=== PATIENT | male | born 1955 | race American Indian/Alaskan Native ===

== ENCOUNTER 2018-07-17 12:19 | Inpatient (IN) | payer BC ==
[2018-07-12 12:51] VITALS: BMI 32.1
[2018-07-17] MEDS ORDERED: Bupivacaine 0.25% 20 ML INJ IJ ONE (16:34)
[2018-07-17] MEDS ORDERED: Propofol 10 mg/ml Inj (20 ML) ONE (16:35)
[2018-07-17] MEDS ORDERED: ceFAZolin IV 1 gm in Dextrose 2 GM/100 ML BAG IVPB ONE (16:35)
[2018-07-17] MEDS ORDERED: Succinylcholine Chloride 20 mg/ml Syr (5 ml) IV ONE (18:05)
[2018-07-17 19:43] VITALS: RESP 20
--- NOTE | 2018-07-17 22:20 | CP.PCM.CON ---
<Akin Velazquez - Last Filed: 07/18/18 04:12> History of Present Illness - History of Present Illness History of Present Illness: PGY2 Medicine Consult Note for Dr. Hanna Reason for consult: Medical Management Patient is a 63 year old male with a past medical history of hypertension and hypothyroidism who was admitted after hernia surgery today. Per patient records , the surgery performed was an incarcerated right sided inguinal hernia repair. Patient reports that he first noticed hernia over one year ago. It was non- tender and non-reducible. He did not experience any nausea, vomiting, diarrhea or constipation. He went to his PMD in [place] and was instructed to have elective surgery for repair of hernia. This was a scheduled procedure and patient reports feeling well. He is tolerating his diet. He has not passed flatus or had a bowel movement since surgery earlier today. He has no complaints at this time. Denies fevers, chills, chest pain, shortness of breath , numbness, tingling. PMH: Hypertension and hypothyroidism PSH: Right inguinal hernia repair Family: both parents in the their 70's (heavy smokers, unknown cause of ) Social: denies tobacco, alcohol and illicit drug use Allergeis: NKDA Review of Systems - Review of Systems All systems: reviewed and no additional remarkable complaints except - Constitutional Constitutional: As Per HPI - EENT Eyes: As Per HPI Nose/Mouth/Throat: As Per HPI - Cardiovascular Cardiovascular: As Per HPI - Respiratory Respiratory: As Per HPI - Gastrointestinal Gastrointestinal: As Per HPI - Musculoskeletal Musculoskeletal: As Per HPI - Integumentary Integumentary: As Per HPI - Neurological Neurological: As Per HPI - Psychiatric Psychiatric: As Per HPI - Endocrine Endocrine: As Per HPI - Hematologic/Lymphatic Hematologic: As Per HPI Past Patient History - Past Medical History & Family History Past Medical History?: Yes - Past Social History Smoking Status: Never Smoked - CARDIAC Hx Cardiac Disorders: Yes Hx Hypertension: Yes - PULMONARY Hx Respiratory Disorders: No - NEUROLOGICAL Hx Neurological Disorder: No - HEENT Hx HEENT Problems: Yes (READING GLASSES) - RENAL Hx Chronic Kidney Disease: No - ENDOCRINE/METABOLIC Hx Endocrine Disorders: Yes Hx Hypothyroidism: Yes - HEMATOLOGICAL/ONCOLOGICAL Hx Blood Disorders: No - INTEGUMENTARY Hx Dermatological Problems: No - MUSCULOSKELETAL/RHEUMATOLOGICAL Hx Musculoskeletal Disorders: Yes Hx Falls: No Other/Comment: Inguinal Hernia, right - GASTROINTESTINAL Hx Gastrointestinal Disorders: No - GENITOURINARY/GYNECOLOGICAL Hx Genitourinary Disorders: Yes Hx Hematuria: Yes (MICROSCOPIC) - PSYCHIATRIC Hx Psychophysiologic Disorder: No Hx Substance Use: No - SURGICAL HISTORY Hx Surgeries: Yes Hx Herniorrhaphy: Yes (RT. INGUINAL) - ANESTHESIA Hx Anesthesia: Yes Hx Anesthesia Reactions: No Hx Malignant Hyperthermia: No Has any member of the family had a problem w/ anesthesia?: No Meds Allergies/Adverse Reactions: Allergies Allergy/AdvReac Type Severity Reaction Status Date / Time No Known Allergies Allergy Verified 07/12/18 12:51 - Medications Medications: Current Medications Docusate Sodium (Colace) 100 mg PO BID [facility] Enoxaparin Sodium (Lovenox) 40 mg SC DAILY [facility] Lactated Ringer's (Lactated Ringer's) 1,000 mls @ 100 mls/hr IV .Q10H [facility] Ketorolac Tromethamine (Toradol) 30 mg IVP Q6 PRN PRN Reason: pain 8-10 Stop: 07/22/18 18:24 Nebivolol (Bystolic) 5 mg PO DAILY [facility] Ondansetron HCl (Zofran Inj) 4 mg IVP Q6 PRN PRN Reason: Nausea/Vomiting Oxycodone/Acetaminophen (Percocet 5/325 Mg Tab) 2 tab PO Q4H PRN PRN Reason: pain Stop: 07/20/18 18:11 Pantoprazole Sodium (Protonix Inj) 40 mg IVP DAILY [facility] Physical Exam - Constitutional Appears: Well, No Acute Distress Additional comments: Patient recently received pain medication - Head Exam Head Exam: ATRAUMATIC, NORMOCEPHALIC - Eye Exam Eye Exam: Normal appearance - ENT Exam ENT Exam: Mucous Membranes Moist - Respiratory Exam Respiratory Exam: Clear to Auscultation Bilateral, NORMAL BREATHING PATTERN. absent: Accessory Muscle Use, Rales, Rhonchi, Wheezes, Respiratory Distress - Cardiovascular Exam Cardiovascular Exam: REGULAR RHYTHM, +S1, +S2 - GI/Abdominal Exam GI & Abdominal Exam: Normal Bowel Sounds, Soft. absent: Distended, Firm, Guarding, Rigid, Tenderness - Exam Additional comments: Right inguinal surgical dressing c/d/i - Extremities Exam Extremities exam: Positive for: pedal pulses present. Negative for: calf tenderness, pedal edema Additional comments: scds in place - Neurological Exam Neurological exam: Alert, Oriented x3 - Psychiatric Exam Psychiatric exam: Normal Affect, Normal Mood - Skin Skin Exam: Dry, Warm Results - Vital Signs Recent Vital Signs: Last Vital Signs Temp 97.8 F 07/17/18 19:42 Pulse 68 07/17/18 19:42 Resp 20 07/17/18 19:42 BP 151/87 H 07/17/18 19:42 Pulse Ox 97 07/17/18 19:42 Assessment & Plan - Assessment and Plan (Free Text) Plan: Incarcerated Right Inguinal Hernia s/p repair POD#1 General Surgery Primary Team, Dr. Johnson management per primary team Hypertension continue home medication * Bystolic 5mg PO daily Hypothyroidism patient does not know dose of home medication * Patient just started medication less than one week ago, will hold medication for now. Prophylactic Care Lovenox 40mg SC daily SCDs Protonix 40mg IVP daily Case discussed with Dr. Jacques Velazquez PGY2 <Horacio Hanna P - Last Filed: 07/18/18 07:03> Meds - Medications Medications: Current Medications Docusate Sodium (Colace) 100 mg PO BID [facility] Enoxaparin Sodium (Lovenox) 40 mg SC DAILY [facility] Lactated Ringer's (Lactated Ringer's) 1,000 mls @ 100 mls/hr IV .Q10H [facility] Last Admin: 07/18/18 05:56 Dose: 100 mls/hr Ketorolac Tromethamine (Toradol) 30 mg IVP Q6 PRN PRN Reason: pain 8-10 Stop: 07/22/18 18:24 Nebivolol (Bystolic) 5 mg PO DAILY [facility] Ondansetron HCl (Zofran Inj) 4 mg IVP Q6 PRN PRN Reason: Nausea/Vomiting Oxycodone/Acetaminophen (Percocet 5/325 Mg Tab) 2 tab PO Q4H PRN PRN Reason: pain Stop: 07/20/18 18:11 Last Admin: 07/18/18 00:07 Dose: 2 tab Pantoprazole Sodium (Protonix Inj) 40 mg IVP DAILY [facility] Results - Vital Signs Recent Vital Signs: Last Vital Signs Temp 97.9 F 07/18/18 00:09 Pulse 68 07/18/18 00:09 Resp 20 07/18/18 00:09 BP 106/70 07/18/18 00:09 Pulse Ox 98 07/18/18 00:09 Attending/Attestation - Attestation I have personally seen and examined this patient.: Yes I have fully participated in the care of the patient.: Yes I have reviewed all pertinent clinical information: Yes Notes (Text): 07/18/18 06:58 Patient evaluated on consult, admitted post of after surgical repair of right inguinal hernia, has h/o htn on bystolic 5mg daily and thyroid med started recently, patient was tolerating diet last night, alert oriented x3 and no significant pain with the current meds, will check am labs if stable will sign off, please call as needed.
[2018-07-18] MEDS: Oxycodone/Acetaminophen 5/325 mg Tab PO PRN ×2 (00:07→13:29)
[2018-07-18] MEDS: Lactated Ringer's 1,000 ML IV SCH (05:56)
--- NOTE | 2018-07-18 06:01 | OP ---
PROCEDURE DATE: 07/17/2018 PREOPERATIVE DIAGNOSIS: Incarcerated right inguinal hernia. POSTOPERATIVE DIAGNOSIS: Incarcerated right inguinal hernia. PROCEDURE PERFORMED: Repair of incarcerated right inguinal hernia. SURGEON: Dong Johnson MD ANESTHESIA: General. BLOOD LOSS: 40 mL. POSTOP CONDITION: Stable. INDICATIONS FOR SURGERY: This is a 63-year-old male who has a large right inguinal scrotal hernia, where an ultrasound revealed a large inguinal scrotal hernia with bowel. The ultrasound was read as the left side, but on exam the hernia was obviously on the right side as there was no left inguinal hernia noted on exam. GROSS FINDINGS: There was a large pantaloon hernia with a very large hernia sac which was extending down to near the testicle. It contained small bowel as well as a component. There was also a large 5-cm cord lipoma. DESCRIPTION OF PROCEDURE: The patient was taken to the operating room, general anesthesia was administered. The right groin was prepped and draped. A standard right inguinal incision was made. The external oblique aponeurosis was opened and the spermatic cord was looped with a [place] drain. There was a large inguinal scrotal hernia sac, which meticulously had to be taken off the cord as well as the cord structures including the vas and the spermatic artery. At one point, the spermatic artery was bleeding. It was repaired with 7-0 Prolene and blood flow was confirmed by Doppler. Once the sac had been meticulously taken off, I dissected down to the hernia base direct. A direct hernia component was noted. This was also dissected free at its base and inverted. A medium-sized hernia plug was inserted into the direct hernia sac, sutured in place with 2-0 Prolene. Next, a large hernia sac was completely dissected free down to its base. It was associated with a large 5 to 6 cm pelvic lipoma, which was resected. The hernia sac was divided using a TA 60 stapler and the hernia defect was repaired using an extra large Prolene plug using interrupted 2-0 Prolene suture. The wound was irrigated. It should be noted that while taking down the hernia, there was a serosal tear noted of the small bowel. This was repaired with silk. The wound was then irrigated with copious amounts of saline solution. Tissue flaps were raised and a closure of the space was performed with multiple layers of Monocryl, subcuticular Monocryl, and skin clips. The patient tolerated the procedure well, and returned to recovery room in stable condition. Dong Johnson MD
--- NOTE | 2018-07-18 08:21 | CP.PCM.PN ---
Subjective - Date & Time of Evaluation Date of Evaluation: 07/18/18 Time of Evaluation: 07:45 - Subjective Subjective: Hospitalist Consult Note Patient was seen and examined at 7:45 AM 07/18/18 368 A Very pleasant 63 year old male (PMHx of HTN and Hypothyroidism) who underwent Right Inguinal Hernia repair on 07/17/18. Hospitalist Service was consulted for management of his chronic medical problems. Upon FULL ROS NO dysphagia/odynopahgia NO soreness in throat NO cough NO sinus/nasal congestion NO fever/chills NO muscle aches/pains NO joint pain NO chest pain/palpations NO SOB NO abdominal pain NO n/v/d/c: has not had a bowel movement since right inguinal hernia repair however is passing flatus NO burning pain with urination NO BONDS NO lightheadedness/dizziness NO paresthesias Exam: General: AAOX3, NAD HEENT: NCA, EOMI, PERRLA, NO cervical/supraclavicular/submandibular lymphadenopathy, NO pharyngeal erythema/exudate, Nasal Turbinates are nonerythematous/nonedematous, Oral Mucosa is moist Cardio: NS1 and NS2, NO M/R/G Resp: CTA B/L, NO R/R/W GI: BSx4, Soft, NT, NO HSM, NO guarding/rebound tenderness Ext: Pulses are strong and equal, Capillary Refill is 2 seconds, NO edema Neuro: CN II through XII are grossly intact Assessments: 1). S/P Right Inguinal Hernia Repair: management as per primary attending Dr. Johnson. Incentive Spirometry ordered and demonstrated to patient how to use. 2). Hx HTN 3). Hx Hypothyroidism As per my conversation with patient, his primary care physician is Dr. Kearns in [place] who manages his HTN and Hypothyroidism. He has follow up scheduled with Dr. Kearns towards the end of this month. Confirmed with him that he has enough of his Bystolic (for his HTN) and Levothyroxine (for his Hypothyroidism) to last him until his appointment with Dr. Kearns. Will follow up this morning's labs. Medicine Team will be signing off. Shaheen Wynne D.O. Objective - Vital Signs/Intake and Output Vital Signs (last 24 hours): Temp Pulse Resp BP Pulse Ox 97.9 F 68 20 106/70 98 07/18/18 00:09 07/18/18 00:09 07/18/18 00:09 07/18/18 00:09 07/18/18 00:09 Intake and Output: 07/18/18 07/18/18 06:59 18:59 Intake Total 350 Output Total 300 Balance 50 - Medications Medications: Current Medications Docusate Sodium (Colace) 100 mg PO BID [facility] Enoxaparin Sodium (Lovenox) 40 mg SC DAILY [facility] Lactated Ringer's (Lactated Ringer's) 1,000 mls @ 100 mls/hr IV .Q10H [facility] Last Admin: 07/18/18 05:56 Dose: 100 mls/hr Ketorolac Tromethamine (Toradol) 30 mg IVP Q6 PRN PRN Reason: pain 8-10 Stop: 07/22/18 18:24 Nebivolol (Bystolic) 5 mg PO DAILY [facility] Ondansetron HCl (Zofran Inj) 4 mg IVP Q6 PRN PRN Reason: Nausea/Vomiting Oxycodone/Acetaminophen (Percocet 5/325 Mg Tab) 2 tab PO Q4H PRN PRN Reason: pain Stop: 07/20/18 18:11 Last Admin: 07/18/18 00:07 Dose: 2 tab Pantoprazole Sodium (Protonix Inj) 40 mg IVP DAILY [facility]
[2018-07-18 09:08] LABS: BASO # 0.1 K/uL (0.0-0.2); BASO % 0.5 % (0.0-2.0); EOS % 0.1 % (0.0-4.0); HEMOGLOBIN 11.6 g/dL (12.0-18.0); LYMPH # 0.9 K/uL (1.0-4.3); LYMPH % 7.6 % (20.0-40.0); MEAN CELL VOLUME 79.3 fL (80.0-94.0); MEAN CORPUSCULAR HEMOGLOBIN 25.7 pg (27.0-31.0); MEAN CORPUSCULAR HGB CONC 32.4 g/dL (33.0-37.0); MEAN PLATELET VOLUME 8.1 fL (7.2-11.7); MONO # 0.9 K/uL (0.0-0.8); MONO % 7.9 % (0.0-10.0); NEUT % 83.9 % (50.0-75.0); PLATELET COUNT 210 K/uL (130-400); RED CELL DISTRIBUTION WIDTH 14.3 % (11.5-14.5); WHITE BLOOD COUNT 11.9 K/uL (4.8-10.8)
[2018-07-18 09:32] LABS: CALCIUM 8.6 mg/dl (8.6-10.4)
[2018-07-18 10:10] LABS: ANISOCYTOSIS SLIGHT; BANDS 2 % (0-2); BASOPHIL 1 % (0-2); HYPOCHROMIC SLIGHT; LYMPHOCYTE 8 % (20-40); MONOCYTE 5 % (0-10); NEUTROPHIL 84 % (50-75); PLATELET ESTIMATE NORMAL (NORMAL); POIKILOCYTOSIS SLIGHT; TOTAL CELLS COUNTED 100
[2018-07-18 10:11] LABS: LARGE PLATELETS PRESENT
[2018-07-18] MEDS: Enoxaparin 40 mg Syringe SC SCH (10:19)
[2018-07-19] MEDS: Lactated Ringer's 1,000 ML IV SCH ×2 (03:45→10:34)
[2018-07-19] MEDS: Enoxaparin 40 mg Syringe SC SCH (10:34)
[2018-07-20] MEDS: Enoxaparin 40 mg Syringe SC SCH (09:12)
[2018-07-20 14:51] VITALS: BP 120/80; PULSE 76; TEMP 98; O2SAT 98
[2018-07-20] MEDS: Lactated Ringer's 1,000 ML IV SCH (15:06)
== END 2018-07-20 15:45 | disposition home or self-care (01) | DRG 351 ==
LOC: C.SDS 12:19 → C.9S 18:11 → C.3T 18:31
PROVIDERS: ADMIT Surgery; ATTEND Surgery
PROC: 0JBL0ZZ Excision of Right Upper Leg Subcutaneous Tissue and Fascia, Open Approach (ICD-10-PCS; 2018-07-17)
PROC: 0HQAXZZ Repair Inguinal Skin, External Approach (ICD-10-PCS; 2018-07-17)
PROC: 0YU50JZ Supplement Right Inguinal Region with Synthetic Substitute, Open Approach (ICD-10-PCS; principal; 2018-07-17 13:45)
DX: K40.30 Unilateral inguinal hernia, with obstruction, without gangrene, not specified as recurrent (principal); S36.439A Laceration of unspecified part of small intestine, initial encounter; D17.6 Benign lipomatous neoplasm of spermatic cord; I10 Essential (primary) hypertension; E03.9 Hypothyroidism, unspecified; Y69 Unspecified misadventure during surgical and medical care